=== PATIENT | female | born 1985 | race Caucasian/White ===

== ENCOUNTER 2024-08-10 22:30 | Emergency (ER) | payer SELFPAY ==
[~2024-08-10] VITALS: Ht 157.5 cm; Wt 65.8 kg
[2024-08-10 22:39] VITALS: O2SAT 100
[2024-08-10 23:39] LABS: BASOPHILS % 0.4 % (0.0-2.0); EOSINOPHILS % 4.4 % (0.0-5.0); HEMATOCRIT. 41.1 % (36.0-48.0); HEMOGLOBIN. 14.4 g/dL (12.0-16.0); LYMPHOCYTES % 38.3 % (20.0-50.0); MEAN CORPUSCULAR HEMOGLOBIN 30.8 pg (28.0-32.0); MEAN CORPUSCULAR VOLUME 87.8 fL (81.0-99.0); MEAN PLATELET VOLUME 7.2 fl (7.4-10.4); MONOCYTES % 5.1 % (2.0-8.0); NEUTROPHILS % 51.8 % (40.0-76.0); PLATELET 285 x1000/uL (130-400); RED BLOOD CELL COUNT 4.68 mill/uL (4.2-5.4); RED CELL DISTRIBUTION WIDTH 13.1 % (11.6-14.6); WHITE BLOOD COUNT 9.4 x1000/uL (4.5-11.0)
[2024-08-10 23:43] LABS: CHLORIDE 103 mEq/L (98-107); POTASSIUM 3.7 mEq/L (3.5-5.1); SODIUM 136 mEq/L (136-145)
[2024-08-10 23:44] LABS: CARBON DIOXIDE 24 mEq/L (21-32)
[2024-08-10 23:45] LABS: CALCIUM 9.2 mg/dL (8.7-10.4)
[2024-08-10 23:49] LABS: CREATININE 0.6 mg/dL (0.6-1.0); GLUCOSE 290 mg/dL (70-105); UREA NITROGEN BLOOD 8 mg/dL (9-23)
[2024-08-11 00:27] LABS: TROPONIN I HIGH SENSITIVITY < 4 ng/L (3.0-34)
[2024-08-11] MEDS: KETOROLAC 30MG/ML VIAL IM STA (02:27)
[2024-08-11] MEDS: ACETAMINOPHEN 325MG TABLET PO STA (02:28)
[2024-08-11 03:08] VITALS: BP 131/87; PULSE 83; RESP 18; TEMP 37.1; O2SAT 99
== END 2024-08-11 03:09 | disposition home or self-care (01) ==
LOC: ER 22:30
DX: R51.9 Headache, unspecified (principal); E11.9 Type 2 diabetes mellitus without complications; I11.9 Hypertensive heart disease without heart failure; I50.9 Heart failure, unspecified; Z98.890 Other specified postprocedural states; Z90.49 Acquired absence of other specified parts of digestive tract
CPT/HCPCS: 99285; 71045; 80048; 85025; 84484; 36415; 93005; 96372; J1885